=== PATIENT | female | born 1965 | race Caucasian/White ===

== ENCOUNTER → 2018-09-22 15:08 | Outpatient (CLI) | payer OTHER, SELFPAY ==
[2018-09-22 15:32] LABS: Influenza A and B by PCR Rapid Negative (Negative)
== END ==
PROVIDERS: Visit Provider Physician Assistant
DX: R68.89 Other general symptoms and signs (principal)
CPT/HCPCS: 87400

== ENCOUNTER → 2023-07-15 07:50 | Outpatient (CLI) | payer OTHER, SELFPAY ==
--- NOTE | 2023-07-15 07:52 | DI.MG.S_ITS ---
BILATERAL DIGITAL SCREENING MAMMOGRAM 3D/2D WITH CAD: 07/15/2023 CLINICAL: Routine screening. Family history of breast cancer. Comparison is made to exams dated: 05/13/2016 mammogram, 11/26/2014 mammogram, and 09/18/2013 mammogram - [facility]. Both breasts are heterogeneously dense, which may obscure small masses (category c / 51-75% glandular tissue). Current study was also evaluated with a Computer Aided Detection (CAD) system. No significant masses, calcifications, or other findings are seen in either breast. There has been no significant interval change. IMPRESSION: NEGATIVE There is no mammographic evidence of malignancy. A 1 year screening mammogram is recommended. Consider additional supplemental MRI screening. Based on Tyrer-Cuzick model (a risk assessment model), the patient's lifetime risk is 26.6% and her 10 year risk is 9.8%. If a patient has an elevated risk, a more comprehensive evaluation should be considered and/or a referral to a genetic counselor. The [place] [employer], [employer] [employer], and NCCN Guidelines advise the consideration of Breast MRI as an adjunct to screening mammography in patients whose Lifetime risk to develop breast cancer is 20% or higher. This exam was interpreted at Station ID: [id number]. NOTE: For mammograms, a report in lay terms will be sent to the patient. Approximately 15% of breast malignancies will not be visualized mammographically. In the management of a palpable breast mass, a negative mammogram must not discourage biopsy of a clinically suspicious lesion. Electronically Signed By: Jj Olivarez M.D. lc/:07/15/2023 14:18:29 letter sent: Normal Exam ACR BI-RADS Category 1: Negative [id number]
[2023-07-18 15:30] LABS: Fecal Immunochemical Test Negative (Negative)
== END ==
PROVIDERS: PCP Student in an Organized Health Care Education/Training Program; Referring Provider Student in an Organized Health Care Education/Training Program; Visit Provider Student in an Organized Health Care Education/Training Program
DX: Z12.31 Encounter for screening mammogram for malignant neoplasm of breast (principal); Z12.11 Encounter for screening for malignant neoplasm of colon; Z80.3 Family history of malignant neoplasm of breast
CPT/HCPCS: 77063; 77067; 82274

== ENCOUNTER 2024-07-11 10:45 | Emergency (ER) | payer OTHER, SELFPAY ==
--- NOTE | 2024-07-11 10:50 | DI.RAD.S_ITS ---
PROCEDURE: XR ANKLE LT MIN 3V INDICATIONS: injury TECHNIQUE: 3 views of the ankle were acquired. COMPARISON: None. FINDINGS: Bones: No acute displaced fracture of the ankle. Ankle mortise is intact. Soft tissues: No suspicious calcifications. IMPRESSION: No acute displaced fracture or dislocation. Foot fracture findings are separately dictated. Dictated by: Jj Olivarez M.D. on 07/11/2024 at 10:10 Approved by: Jj Olivarez M.D. on 07/11/2024 at 10:11
--- NOTE | 2024-07-11 10:50 | DI.RAD.S_ITS ---
PROCEDURE: XR FOOT LT MIN 3V INDICATIONS: injury TECHNIQUE: 3 views of the foot were acquired. COMPARISON: [facility], , FOOT 3V LEFT, 07/17/2017, 9:46. FINDINGS: Bones: Mildly displaced fracture of the 5th metatarsal base. Mild 1st MTP arthrosis. Soft tissues: No suspicious calcifications. IMPRESSION: Fifth metatarsal base fracture. Dictated by: Jj Olivarez M.D. on 07/11/2024 at 10:08 Approved by: Jj Olivarez M.D. on 07/11/2024 at 10:09
[2024-07-11 10:53] VITALS: BP 165/93; PULSE 69; RESP 20; TEMP 36.4; O2SAT 99; BMI 29.0
--- NOTE | 2024-07-11 11:02 | ED.LOWEXIN ---
HPI - Extremity Injury (Lower) General Chief Complaint: Extremity Injury, Lower Stated Complaint: poss L foot fracture Time Seen by Provider: 07/11/24 10:57 Source: patient Mode of arrival: Wheelchair History of Present Illness HPI Narrative: Patient is a 58-year-old female here for evaluation of a left foot injury. Patient states she was outside feeding her chickens when she states she stepped wrong. Unsure exactly what happened but she thinks she inverted her left foot. [place] and heard a ?snap? and since that time has had swelling and pain the outside of her left foot. She did take 4 Advil prior to arrival. Related Data Home Medications Medication Instructions Recorded Confirmed No Known Home Medications 09/22/18 05/13/23 Allergies Allergy/AdvReac Type Severity Reaction Status Date / Time Sulfa (Sulfonamide Allergy Severe HIVES Verified 05/13/23 09:37 Antibiotics) [SULFA (SULFONAMIDE ANTIBIOTICS)] codeine [CODEINE] Allergy Unknown HIVES Verified 05/13/23 09:37 Review of Systems Constitutional Constitutional: Reports system reviewed and no additional complaints, except as documented Musculoskeletal Musculoskeletal: Reports system reviewed and no additional complaints, except as documented Integumentary/Breasts Skin/Breast: Reports system reviewed and no additional complaints, except as documented Neurologic Neurologic: Reports system reviewed and no additional complaints, except as documented Patient History Surgical History (Updated 11/08/17 @ 06:02 by Conversion Provider) Status post delivery Social History Smoking Status: Never smoker Smoking Status: Never smoker Exam Initial Vital Signs Initial Vital Signs: Vital Signs Temperature 97.6 F 07/11/24 10:53 Pulse Rate 69 07/11/24 10:53 Respiratory Rate 20 07/11/24 10:53 Blood Pressure 165/93 H 07/11/24 10:53 Pulse Oximetry 99 07/11/24 10:53 Oxygen Delivery Method Room Air 07/11/24 10:53 Cardio Pulses: dorsalis pedis present on the left Skin Other: Bruising located lateral aspect of left midfoot Neuro Sensory Exam: no sensory deficits noted Extrem Other: No proximal fibula tenderness. No tenderness along the Achilles. No tenderness along the mediolateral malleolus. Does have tenderness along the base of the 5th metatarsal. Procedures Orthopedic Splinting/Casting Injury #1: Side: left Lower Extremity Injury Location: ankle Lower Extremity Immobilizer: boot orthosis Post splinting neuro exam: intact Post splinting vascular exam: intact Placed by: Nursing Course Orders Ordered: ED Orders 07/11/24 10:50 XR ankle LT min 3V Stat XR foot LT min 3V Stat Vital Signs Vital signs: Vital Signs - 8 hr 07/11/24 10:53 07/11/24 11:48 Temperature 97.6 F 98.6 F Pulse Rate 69 66 Respiratory Rate 20 20 Blood Pressure 165/93 H 160/88 H Pulse Oximetry 99 100 Oxygen Delivery Method Room Air Room Air Oxygen Flow Rate 97 [facility] - Extremity Injury (Lower) Imaging Data Extremity x-ray #1: Radiologist's Impression: PROCEDURE: XR FOOT LT MIN 3V INDICATIONS: injury TECHNIQUE: 3 views of the foot were acquired. COMPARISON: [facility], , FOOT 3V LEFT, 07/17/2017, 9:46. FINDINGS: Bones: Mildly displaced fracture of the 5th metatarsal base. Mild 1st MTP arthrosis. Soft tissues: No suspicious calcifications. IMPRESSION: Fifth metatarsal base fracture. Extremity x-ray #2: Radiologist's Impression: PROCEDURE: XR ANKLE LT MIN 3V INDICATIONS: injury TECHNIQUE: 3 views of the ankle were acquired. COMPARISON: None. FINDINGS: Bones: No acute displaced fracture of the ankle. Ankle mortise is intact. Soft tissues: No suspicious calcifications. IMPRESSION: No acute displaced fracture or dislocation. Foot fracture findings are separately dictated. [facility] Narrative Medical decision making narrative: Patient does have a fracture at the base of the 5th metatarsal. Discussed the case with Dr. Kerr on-call for Orthopedic surgery who recommended a walking boot. No other injuries from the event. Patient was neurovascularly intact. We discussed the injury. Discussed follow-up. Patient was given return precautions. She expressed understanding and agreement. Discharge Plan Departure Patient Disposition: Home Clinical Impression: Foot fracture, left Activity Restrictions/Additional Instructions: The boot does need to stay on while you are walking but you can take it off to put ice over the area and to bathe and at night when you were sleeping. Call the orthopedic doctor at the number provided below for follow-up. Return to the emergency department for new or worsening symptoms. Prescriptions: No Action No Known Home Medications Referrals: Sarah Kerr MD [Physician] - Juanita Devlin MD [Primary Care Provider] - Stand Alone Forms: Patient Portal/API/Survey
[2024-07-11 11:48] VITALS: BP 160/88; PULSE 66; RESP 20; TEMP 37; O2SAT 100
== END 2024-07-11 11:50 | disposition home or self-care (01) ==
PROVIDERS: Emergency Provider Emergency Medicine; PCP Student in an Organized Health Care Education/Training Program
DX: S92.352A Displaced fracture of fifth metatarsal bone, left foot, initial encounter for closed fracture (principal); X50.1XXA Overexertion from prolonged static or awkward postures, initial encounter; Y93.89 Activity, other specified
CPT/HCPCS: 73610; 73630; 99282; 99283

== ENCOUNTER → 2024-09-17 16:42 | Outpatient (CLI) | payer OTHER, SELFPAY ==
[2024-09-17 17:32] LABS: Influenza A - CEPHEID Flu A NEGATIVE (NEGATIVE); Influenza B - CEPHEID Flu B NEGATIVE (NEGATIVE); Respiratory Syncytial Virus Negative (Negative)
[2024-09-17 17:33] LABS: COVID-19 CEPHEID 4-PLEX PCR Negative (Negative)
== END ==
PROVIDERS: PCP Student in an Organized Health Care Education/Training Program; Visit Provider Nurse Practitioner Family
DX: R05.1 Acute cough (principal)
CPT/HCPCS: 0241U

== ENCOUNTER → 2024-09-19 11:45 | Outpatient (CLI) | payer OTHER, SELFPAY ==
--- NOTE | 2024-09-19 11:46 | DI.RAD.S_ITS ---
PROCEDURE: XR CHEST 2V INDICATIONS: Cough TECHNIQUE: 2 views of the chest were acquired. COMPARISON: None. FINDINGS: Heart, mediastinum and pulmonary vascular: Heart is normal in size and configuration. Mediastinum is unremarkable. Pulmonary vascular is normal. Lungs: Clear Pleural spaces: Normal-no effusions or pneumothorax. Bones and soft tissues: Moderate degenerative disc disease seen throughout the thoracic spine IMPRESSION: No cardiopulmonary disease. Dictated by: Jaxon Murray M.D. on 09/20/2024 at 12:17 Approved by: Jaxon Murray M.D. on 09/20/2024 at 12:18
== END ==
PROVIDERS: PCP Student in an Organized Health Care Education/Training Program; Referring Provider Nurse Practitioner Family; Visit Provider Nurse Practitioner Family
DX: R05.9 Cough, unspecified (principal)
CPT/HCPCS: 71046

== ENCOUNTER → 2025-01-09 08:22 | Outpatient (CLI) | payer OTHER, SELFPAY ==
[2025-01-09 08:55] LABS: Alanine Aminotransferase 19 IU/L (<35); Albumin 4.7 g/dL (3.5-5.0); Albumin Globulin Ratio 1.5 (1.0-2.8); Alkaline Phosphatase 80 U/L (38-126); Blood Urea Nitrogen 19 mg/dL (7-17); Calcium 9.4 mg/dL (8.4-10.2); Carbon Dioxide 25 mmol/L (22-32); Chloride 103 mmol/L (98-107); Cholesterol 232 mg/dL (140-199); Estimated Glomerular Filt Rate > 60 mL/min (>60); Globulin 3.2 g/dL (1.7-4.1); Glucose 99 mg/dL (70-99); HDL Cholesterol 61 mg/dL (40-60); HEMOLYSIS < 15 (0-50); Hemoglobin A1C% w Est Avg Glu 5.1 % (4.0-6.0); Potassium 4.5 mmol/L (3.4-5.1); Sodium 138 mmol/L (137-145); Total Protein 7.9 g/dL (6.3-8.2); Triglycerides 106 mg/dL (35-150)
== END ==
PROVIDERS: PCP Student in an Organized Health Care Education/Training Program; Referring Provider Student in an Organized Health Care Education/Training Program; Visit Provider Student in an Organized Health Care Education/Training Program
DX: Z13.1 Encounter for screening for diabetes mellitus (principal); Z13.228 Encounter for screening for other metabolic disorders; Z13.220 Encounter for screening for lipoid disorders
CPT/HCPCS: 36415; 80053; 80061; 83036